=== PATIENT | female | born 1975 | race Caucasian/White ===

== ENCOUNTER → 2021-08-31 12:56 | Outpatient (CLI) | payer SELFPAY | PROVIDERS: PCP Family Medicine; Visit Provider Physician Assistant | DX: U07.1 COVID-19 (principal) | CPT/HCPCS: C9803; U0003; U0005 ==

== ENCOUNTER 2022-08-14 18:21 | Emergency (ER) | payer OTHER, SELFPAY ==
[2022-08-14 19:19] VITALS: BP 161/85; PULSE 84; RESP 16; TEMP 36.9; O2SAT 95; BMI 50.8
--- NOTE | 2022-08-14 19:27 | EXP.UTC ---
Discharge Plan Disposition Patient Disposition: Home, Self-Care Condition: Good Prescriptions Prescriptions: New promethazine-DM 6.25-15 mg/5 mL Syrup 5 ml PO Q6H PRN (Reason: Cough) Qty: 240 0RF prednisone 10 mg tablet 10 mg PO DIRECTED 9 Days Qty: 21 0RF Rx Instructions: Take 4 tablets daily for 3 days, then take 2 tablets daily for 3 days, then take 1 tablet daily for 3 days, then stop. albuterol sulfate [Ventolin HFA] 90 mcg/actuation HFA aerosol inhaler 2 puff inhalation Q6H PRN (Reason: shortness of breath or wheezing) Qty: 6.7 0RF amoxicillin-pot clavulanate 875-125 mg Tablet 1 tab PO Q12H Qty: 20 0RF No Action metformin 500 MG tablet 500 mg PO DAILY hydrocodone-acetaminophen 1 EACH tablet 1 each PO Q4H 3 Days Qty: 12 0RF prednisone 50 MG tablet 50 mg PO DAILY 5 Days Qty: 5 0RF Referrals Follow up/Referrals: Deborah Ellis MD [Primary Care Provider] - See instructions Activity Restrictions/Add. Instructions Additional Instructions/Restrictions: Drink plenty of fluids. Take tylenol or ibuprofen for pain or fever. Take the medications as directed. Follow up with your regular doctor. GO TO THE ER FOR ANY WORSENING SYMPTOMS Don't start the oral steroids until tomorrow, since you had the shot here today. The cough medication (promethazine dm) will make you drowsy, so don't drive or operate heavy machinery after taking it. Clinical Impressions Clinical Impression: Acute bronchitis Stand Alone Forms Stand Alone Forms: Work/School Release Instructions Patient Instructions: DI for Acute Bronchitis Discharge ED Provider: Donaldo Mosquera [facility] HPI General Stated complaint: exposed to flu, diff breeathing,chills Mode of Arrival: Ambulatory Source of Information: Patient Limitations: No Limitations Time Seen by Provider: 08/14/22 19:27 Description of Symptoms (Recalled from Triage Doc. by RN): pt borught in with c/o fatigue, cough, pt quit smoking 7 days ago HEENT Symptoms (Recalled from RN notes): No Resp Symptoms (Recalled from RN notes): Yes Skin Symptoms (Recalled from RN notes): No MS Symptoms (Recalled from RN notes): No Functional Status (Recalled from RN notes): n/a History of Present Illness Provider Complaint: She states that for the past 2 weeks she has had productive cough, chest congestion, sinus congestion. Related Data Home Medications Medication Instructions Recorded Confirmed metformin 500 mg tablet 500 mg PO DAILY Diabetes 03/15/19 03/15/19 Previous Rx's Medication Instructions Recorded hydrocodone 5 mg-acetaminophen 325 1 each PO Q4H 3 days #12 tabs 03/15/19 mg tablet prednisone 50 mg tablet 50 mg PO DAILY 5 days #5 tabs 03/15/19 albuterol sulfate 90 mcg/actuation 2 puff inhalation Q6H PRN 08/14/22 aerosol inhaler (Ventolin HFA) shortness of breath or wheezing #6.7 grams amoxicillin 875 mg-potassium 1 tab PO Q12H #20 tabs 08/14/22 clavulanate 125 mg tablet prednisone 10 mg tablet 10 mg PO DIRECTED 9 days #21 08/14/22 tabs promethazine-DM 6.25 mg-15 mg/5 mL 5 ml PO Q6H PRN Cough #240 mL 08/14/22 oral syrup Allergies Allergy/AdvReac Type Severity Reaction Status Date / Time No Known Allergies Allergy Verified 03/15/19 11:52 Worker's Comp Is this a Worker's Comp case?: No [facility] Disclaimer: The information contained in this section may have been updated after the patient was seen, as this information can be updated by other users. Social History Smoking Status: Current every day smoker tobacco type: cigarettes packs per day: 1 alcohol intake: never current occupational status: unemployed Travel in the last 8 weeks: None ROS Obtained: Yes All systems reviewed & no additional complaints except as documented Constitutional Constitutional: Reports chills and Denies fever(s) Eyes Eyes: Denies eye discharge ENT Ear
[2022-08-14 20:08] LABS: Coronavirus 19, PCR Not Detected (NotDetected); Influenza A, PCR Not Detected (NotDetected); Influenza B, PCR Not Detected (NotDetected)
[2022-08-14 20:35] VITALS: BP 161/85; PULSE 84; RESP 16; TEMP 36.9
== END 2022-08-14 20:40 | disposition home or self-care (01) ==
PROVIDERS: Emergency Provider Nurse Practitioner Family; PCP Family Medicine
DX: R06.02 Shortness of breath (principal); R05.9 Cough, unspecified; R53.81 Other malaise; Z20.822 Contact with and (suspected) exposure to COVID-19; R09.89 Other specified symptoms and signs involving the circulatory and respiratory systems; Z79.51 Long term (current) use of inhaled steroids; Z79.52 Long term (current) use of systemic steroids; Z79.84 Long term (current) use of oral hypoglycemic drugs; Z79.899 Other long term (current) drug therapy; Z87.891 Personal history of nicotine dependence
CPT/HCPCS: 96372; 99213; C9803; G0463; J0696; U0003; U0005

== ENCOUNTER 2023-11-27 07:36 | Outpatient (CLI) | payer OTHER, SELFPAY ==
--- NOTE | 2023-11-27 07:36 | CT_ITS ---
FINAL REPORT TECHNIQUE: Axial images were obtained from the lung apex to the mid abdomen by computed tomography. This study was performed with techniques to keep radiation doses as low as reasonably achievable (ALARA). Individualized dose reduction techniques using automated exposure control or adjustment of mA and/or kV according to the patient's size were employed. CLINICAL HISTORY: lung cancer screening COMPARISON: 03/15/2019 FINDINGS: CHEST CT LOW DOSE CTDI vol (mGy): 2.90 DLP (mGy-cm): 96.90 There is no axillary adenopathy. There is no hilar or mediastinal adenopathy. The heart is normal in size. There is no pericardial or pleural effusion. Lung window images demonstrate no suspicious infiltrate or nodule. Limited images of the upper abdomen are unremarkable. IMPRESSION: Lung RADS category 1. Recommend 12 month follow-up low-dose chest CT. Reviewed, Interpreted and Dictated by Manish Finch MD Transcribed by Rosa M Jorge Authenticated and [facility]
--- NOTE | 2023-11-27 07:36 | MM_ITS ---
PROCEDURE INFORMATION: Exam: MG Bilateral Screening 3D Mammography Exam date and time: 11/27/2023 9:42 AM Age: 47 years old Clinical indication: Screening mammogram TECHNIQUE: Imaging protocol: Bilateral Screening tomosynthesis and 2D mammography including computer-aided detection (CAD) when performed. COMPARISON: No relevant prior studies available. FINDINGS: MAMMOGRAPHY: Breast composition: There are scattered areas of fibroglandular density. Mass: None. Architectural distortion: No new or suspicious architectural distortion. Calcifications: Multiple focal groupings of calcifications within the lower inner anterior and middle 3rd right breast should be assessed with spot MAGNIFICATION views in CC/ML projection for morphologic characterization. Asymmetric density: No new or suspicious asymmetric density is present Skin thickening: None. Axillary adenopathy: None. IMPRESSION: Multiple focal groupings of calcifications within the lower inner anterior and middle 3rd right breast should be assessed with spot MAGNIFICATION views in CC/ML projection for morphologic characterization. ASSESSMENT: BI-RADS category 0: Incomplete-need additional imaging evaluation
--- NOTE | 2023-11-27 07:52 | CA_ITS ---
FINAL REPORT TECHNIQUE: Ultrasound images of the deep venous system were obtained from the left groin to the calf veins. CLINICAL HISTORY: left calf pain with LLE edema, Morbid obesity COMPARISON: None FINDINGS: The deep venous system is normally compressible. Normal flow is identified. IMPRESSION: No evidence of left lower extremity DVT. Reviewed, Interpreted and Dictated by Manish Finch MD Transcribed by Nicole Gold Authenticated and [facility]
== END 2023-11-27 23:59 ==
LOC: RAD 07:36
PROVIDERS: PCP Nurse Practitioner; Visit Provider Nurse Practitioner
DX: M79.662 Pain in left lower leg (principal); R60.0 Localized edema; Z12.31 Encounter for screening mammogram for malignant neoplasm of breast; Z12.2 Encounter for screening for malignant neoplasm of respiratory organs; Z87.891 Personal history of nicotine dependence
CPT/HCPCS: 71271; 77063; 77067; 93971

== ENCOUNTER 2023-12-01 18:23 | Outpatient (CLI) | payer OTHER, SELFPAY ==
[2023-12-01 18:24] LABS: Basophils # 0.1 K/mm3 (0-0.2); Basophils % 1.3 % (0.1-2.0); Eosinophils # 0.3 K/mm3 (0.0-0.4); Eosinophils % 2.9 % (0.1-12.0); Hemoglobin 14.6 g/dL (12.2-16.2); Lymphocytes # 2.9 K/mm3 (0.7-4.5); Lymphocytes % 27.7 % (10-50); Mean Corpuscular HGB Conc 31.1 g/dL (31.8-35.4); Mean Corpuscular Hemoglobin 28.1 pg (27.0-31.2); Mean Corpuscular Volume 90.4 fl (81-99); Mean Platelet Volume 9.1 fl (7.4-10.4); Monocytes # 0.7 K/mm3 (0.1-1.0); Monocytes % 6.2 % (1.7-9.3); Neutrophils # 6.5 K/mm3 (1.8-7.8); Neutrophils % 61.9 % (37.0-80.0); Platelet Count 395 K/mm3 (142-424); Red Blood Count 5.19 M/mm3 (4.20-5.40); Red Cell Distribution Width 14.2 % (11.5-17.5); White Blood Count 10.5 K/mm3 (4.8-10.8)
[2023-12-01 18:32] LABS: Alanine Aminotransferase 20 U/L (12-78); Albumin Level 3.9 g/dl (3.5-5.0); Albumin/Globulin Ratio 1.4 (1.1-1.8); Alkaline Phosphatase 97 U/L (38-126); Anion Gap 8.4 mEq/L (5-15); Aspartate Amino Transferase 27 U/L (14-36); Bilirubin,Total 0.4 mg/dl (0.2-1.3); Blood Urea Nitrogen 13 mg/dl (7-17); Calcium 9.2 mg/dl (8.4-10.2); Carbon Dioxide 34 mmol/L (22.0-30.0); Chloride 101 mmol/L (98-107); Chol/HDL Ratio 3.1 (1-3.5); Cholesterol 236 mg/dl (140-200); Estimated Glomerular Filt Rate 133 ml/min (>60); GFR (African American) 161 ML/MIN (>60); Globulin 2.8 g/dL (1.3-3.2); Glucose 121 mg/dl (74-100); HDL Cholesterol 75 mg/dl (40-60); Potassium 4.4 mmoL/L (3.5-5.1); Sodium 139 mmol/L (136-145); Total Protein,Serum 6.7 g/dl (6.3-8.2); Triglycerides 125 mg/dl (30-150); VLDL Cholesterol 25 mg/dL (0-40)
[2023-12-01 18:43] LABS: Direct LDL Cholesterol 129.01 mg/dL (100-129)
[2023-12-01 19:17] LABS: Vitamin B12 543 pg/mL (239-931)
[2023-12-01 19:21] LABS: Free T4 (Free Thyroxine) 1.18 ng/dl (0.78-2.19); Thyroid Stimulating Hormone 3.47 uIU/mL (0.465-4.68)
[2023-12-01 19:42] LABS: Creatinine,Urine Random 165 mg/dL (Not Estab.)
[2023-12-01 19:47] LABS: Microalbumin/Creatinine Ratio 22.9
[2023-12-01 19:51] LABS: Hemoglobin A1C 7.2 % (4.0-6.0)
[2023-12-01 20:16] LABS: 25-OH Vitamin D, Total < 12.8 ng/mL (30-100)
== END 2023-12-01 23:59 ==
LOC: LAB.DROPOF 18:23
PROVIDERS: PCP Nurse Practitioner; Visit Provider Nurse Practitioner
DX: I10 Essential (primary) hypertension (principal); E66.9 Obesity, unspecified; Z68.43 Body mass index [BMI] 50.0-59.9, adult; Z79.899 Other long term (current) drug therapy
CPT/HCPCS: 80053; 80061; 82043; 82306; 82570; 82607; 83036; 84439; 84443; 85025

== ENCOUNTER 2023-12-15 13:32 | Outpatient (CLI) | payer OTHER, SELFPAY ==
--- NOTE | 2023-12-15 13:37 | MM_ITS ---
PROCEDURE INFORMATION: Exam: MG Right Diagnostic Breast Tomosynthesis Exam date and time: 12/15/2023 1:37 PM Age: 47 years old Clinical indication: Patient recalled on the basis of a screening mammogram for further evaluation; Right breast; calcifications TECHNIQUE: Imaging protocol: Right Diagnostic tomosynthesis and 2D mammography including computer-aided detection (CAD) when performed. Unilateral or bilateral exam. COMPARISON: MG MM DIG SCREENING MAMM BI W/CAD 11/27/2023 9:42 AM FINDINGS: MAMMOGRAPHY: Breast composition: Breast composition: There are scattered areas of fibroglandular density (based on the most recent screening mammogram report). Breast mammogram findings: Digital diagnostic magnification views of the right breast demonstrate multiple clusters of calcifications. All the calcifications within each cluster appear uniform in size, shape, and density. No significant pleomorphism. There are at least 14 separate clusters each spanning approximately 0.4 cm with breast tissue. The calcifications are probably benign in etiology. IMPRESSION: Multiple clusters of calcifications scattered in the right breast. A six-month follow-up diagnostic right mammogram with magnification views is recommended to ensure stability over time. There is no one solitary suspicious cluster identified. ASSESSMENT: BI-RADS Category 3: Probably benign.
== END 2023-12-15 23:59 | disposition home or self-care (01) ==
LOC: RAD 13:33
PROVIDERS: PCP Nurse Practitioner; Visit Provider Nurse Practitioner
DX: R92.8 Other abnormal and inconclusive findings on diagnostic imaging of breast (principal)
CPT/HCPCS: 77061; 77065; G0279

== ENCOUNTER 2024-03-01 10:01 | Outpatient (CLI) | payer BC, SELFPAY ==
[2024-03-01 19:45] LABS: Alanine Aminotransferase 21 U/L (12-78); Albumin Level 3.6 g/dl (3.5-5.0); Albumin/Globulin Ratio 1.3 (1.1-1.8); Alkaline Phosphatase 84 U/L (38-126); Anion Gap 13.8 mEq/L (5-15); Aspartate Amino Transferase 31 U/L (14-36); Bilirubin,Total 0.3 mg/dl (0.2-1.3); Blood Urea Nitrogen 16 mg/dl (7-17); Calcium 8.7 mg/dl (8.4-10.2); Carbon Dioxide 29 mmol/L (22.0-30.0); Chloride 98 mmol/L (98-107); Chol/HDL Ratio 4.3 (1-3.5); Cholesterol 199 mg/dl (140-200); Estimated Glomerular Filt Rate 107 ml/min (>60); GFR (African American) 130 ML/MIN (>60); Globulin 2.8 g/dL (1.3-3.2); Glucose 98 mg/dl (74-100); HDL Cholesterol 46 mg/dl (40-60); Potassium 3.8 mmoL/L (3.5-5.1); Sodium 137 mmol/L (136-145); Total Protein,Serum 6.4 g/dl (6.3-8.2); Triglycerides 175 mg/dl (30-150); VLDL Cholesterol 35 mg/dL (0-40)
[2024-03-01 19:57] LABS: Direct LDL Cholesterol 106.97 mg/dL (100-129)
[2024-03-01 20:07] LABS: Hemoglobin A1C 6.2 % (4.0-6.0)
[2024-03-01 21:09] LABS: 25-OH Vitamin D, Total 29.1 ng/mL (30-100)
== END 2024-03-01 23:59 | disposition home or self-care (01) ==
LOC: LAB.DROPOF 03-02 10:02
PROVIDERS: PCP Nurse Practitioner; Visit Provider Nurse Practitioner
DX: E11.9 Type 2 diabetes mellitus without complications (principal); E55.9 Vitamin D deficiency, unspecified; E78.5 Hyperlipidemia, unspecified; E66.9 Obesity, unspecified; Z68.43 Body mass index [BMI] 50.0-59.9, adult
CPT/HCPCS: 80053; 80061; 82306; 83036

== ENCOUNTER 2024-06-08 09:45 | Outpatient (CLI) | payer BC, SELFPAY ==
[2024-06-08 19:25] LABS: Alanine Aminotransferase 25 U/L (12-78); Albumin Level 4.2 g/dl (3.5-5.0); Albumin/Globulin Ratio 1.6 (1.1-1.8); Alkaline Phosphatase 90 U/L (38-126); Anion Gap 7.4 mEq/L (5-15); Aspartate Amino Transferase 33 U/L (14-36); Bilirubin,Total 0.5 mg/dl (0.2-1.3); Blood Urea Nitrogen 12 mg/dl (7-17); Calcium 9.1 mg/dl (8.4-10.2); Carbon Dioxide 33 mmol/L (22.0-30.0); Chloride 97 mmol/L (98-107); Chol/HDL Ratio 4.1 (1-3.5); Cholesterol 186 mg/dl (140-200); Estimated Glomerular Filt Rate 107 ml/min (>60); GFR (African American) 130 ML/MIN (>60); Globulin 2.7 g/dL (1.3-3.2); Glucose 87 mg/dl (74-100); HDL Cholesterol 45 mg/dl (40-60); Potassium 3.4 mmoL/L (3.5-5.1); Sodium 134 mmol/L (136-145); Total Protein,Serum 6.9 g/dl (6.3-8.2); Triglycerides 158 mg/dl (30-150); VLDL Cholesterol 32 mg/dL (0-40)
[2024-06-08 19:36] LABS: Direct LDL Cholesterol 97.84 mg/dL (100-129)
== END 2024-06-08 23:59 | disposition home or self-care (01) ==
LOC: LAB.DROPOF 06-09 09:52
PROVIDERS: PCP Nurse Practitioner; Visit Provider Nurse Practitioner
DX: E55.9 Vitamin D deficiency, unspecified (principal); I10 Essential (primary) hypertension; E11.9 Type 2 diabetes mellitus without complications; Z79.85 Long-term (current) use of injectable non-insulin antidiabetic drugs; E78.5 Hyperlipidemia, unspecified; E66.9 Obesity, unspecified; Z68.43 Body mass index [BMI] 50.0-59.9, adult; Z87.891 Personal history of nicotine dependence
CPT/HCPCS: 80053; 80061; 82306; 83036; 84443

== ENCOUNTER 2024-06-25 12:47 | Outpatient (CLI) | payer BC, SELFPAY ==
--- NOTE | 2024-06-25 12:48 | MM_ITS ---
PROCEDURE INFORMATION: Exam: MG Right Diagnostic Breast Tomosynthesis Exam date and time: 06/25/2024 12:52 PM Age: 48 years old Clinical indication: Short-term follow-up right diagnostic mammogram is recommended on 12/15/23 to assess stability of calcifications TECHNIQUE: Imaging protocol: Right Diagnostic tomosynthesis and 2D mammography including computer-aided detection (CAD) when performed. Unilateral or bilateral exam. COMPARISON: 1. MG MM DIG MAMM DX UNILAT RT CAD 12/15/2023 1:37 PM 2. MG MM DIG SCREENING MAMM BI W/CAD 11/27/2023 9:42 AM FINDINGS: MAMMOGRAPHY: Breast composition: There are scattered areas of fibroglandular density. Breast mammogram findings: Approximately 14 separate morphologically similar-appearing clusters of calcifications are present throughout the upper inner and upper outer right breast. These have remained stable when compared with 12/15/2023. No associated mass or architectural distortion IMPRESSION: Stable groups and clusters are morphologically similar-appearing probably benign calcifications in the upper aspect of the right breast compared with 12/15/2023. Continued surveillance is recommended with diagnostic mammogram in 6 months, at which time the patient will be due for bilateral screening mammogram ASSESSMENT: BI-RADS category 3: Probably benign
== END 2024-06-25 23:59 | disposition home or self-care (01) ==
LOC: RAD 12:48
PROVIDERS: PCP Nurse Practitioner; Visit Provider Nurse Practitioner
DX: R92.8 Other abnormal and inconclusive findings on diagnostic imaging of breast (principal)
CPT/HCPCS: 77061; 77065; G0279

== ENCOUNTER 2024-09-14 09:19 | Outpatient (CLI) | payer BC, SELFPAY ==
[2024-09-14 18:58] LABS: Microalbumin/Creatinine Ratio 10.3
[2024-09-14 19:02] LABS: Alanine Aminotransferase 22 U/L (12-78); Albumin Level 3.9 g/dl (3.5-5.0); Albumin/Globulin Ratio 1.6 (1.1-1.8); Alkaline Phosphatase 87 U/L (38-126); Aspartate Amino Transferase 27 U/L (14-36); Bilirubin,Total 0.2 mg/dl (0.2-1.3); Blood Urea Nitrogen 18 mg/dl (7-17); Calcium 9.2 mg/dl (8.4-10.2); Carbon Dioxide 29 mmol/L (22.0-30.0); Chloride 100 mmol/L (98-107); Chol/HDL Ratio 3.8 (1-3.5); Cholesterol 190 mg/dl (140-200); Estimated Glomerular Filt Rate 107 ml/min (>60); GFR (African American) 130 ML/MIN (>60); Globulin 2.5 g/dL (1.3-3.2); Glucose 82 mg/dl (74-100); HDL Cholesterol 50 mg/dl (40-60); Potassium 4.1 mmoL/L (3.5-5.1); Total Protein,Serum 6.4 g/dl (6.3-8.2); Triglycerides 93 mg/dl (30-150); VLDL Cholesterol 19 mg/dL (0-40)
[2024-09-14 19:03] LABS: Anion Gap 11.1 mEq/L (5-15); Sodium 136 mmol/L (136-145)
[2024-09-14 19:13] LABS: Direct LDL Cholesterol 113.14 mg/dL (100-129)
[2024-09-14 19:22] LABS: Creatinine,Urine Random 207 mg/dL (Not Estab.)
[2024-09-14 19:30] LABS: Thyroid Stimulating Hormone 1.37 uIU/mL (0.465-4.68)
[2024-09-14 19:39] LABS: 25-OH Vitamin D, Total 19.8 ng/mL (30-100)
== END 2024-09-14 23:59 | disposition home or self-care (01) ==
LOC: LAB.DROPOF 09-15 13:31
PROVIDERS: PCP Nurse Practitioner; Visit Provider Nurse Practitioner
DX: E55.9 Vitamin D deficiency, unspecified (principal); E78.5 Hyperlipidemia, unspecified; E11.9 Type 2 diabetes mellitus without complications; I10 Essential (primary) hypertension; E66.9 Obesity, unspecified; Z79.85 Long-term (current) use of injectable non-insulin antidiabetic drugs
CPT/HCPCS: 80053; 80061; 82043; 82306; 82570; 83036; 84443